=== PATIENT | female | born 1980 | race Caucasian/White ===

== ENCOUNTER → 2016-11-02 | Outpatient (CLI) | payer OTHER ==
--- NOTE | 2016-11-02 15:55 | REP ---
MRI abdomen without and with IV gadolinium: History: Attention right kidney. History of abnormal right renal ultrasound in November 2015. Concern for congenital malformation versus neoplasm. Followup MRI study was recommended. Technique: Axial and coronal imaging planes are utilized. T1 and T2-weighted sequences include true FISP, spin echo, turbo spin-echo, and 2-D gradient echo T1 fat sat images. MRI findings: The liver and spleen are unremarkable. No gallbladder abnormality is seen. The common bile duct, intrahepatic bile ducts and pancreatic duct are unremarkable. No pancreatic abnormality is seen. No adrenal lesion is observed on either side. No retroperitoneal mass or adenopathy is seen. The kidneys are bilaterally abnormal with multifocal areas of significant cortical scarring and resultant contour indentation. There is some collecting system deformity in the upper pole on the right and to a lesser extent in the left kidney at mid pole level. There appears to be cyst formation at the upper pole of the left kidney as well with two adjacent cysts, each measuring 12 mm in greatest diameter. There is scarring in each upper pole as well as along the lateral margin of the left kidney and at the lower pole of the left kidney. Findings are most compatible with the results of chronic reflux nephropathy or chronic recurrent pyelonephritis. No renal mass lesion is seen on either side. Impression: Multifocal bilateral chronic scarring affecting both kidneys with contour deformity and some deformity of the collecting system on each side. There are two small cysts at the upper pole of the left kidney. 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 No mass lesion is seen. Signed by Ken Quezada MD 11/02/2016 04:48 P
== END ==
LOC: M RAD 13:34
PROVIDERS: ATTEND Family Medicine
DX: N28.1 Cyst of kidney, acquired (principal)
CPT/HCPCS: 74183; A9576